=== PATIENT | female | born 1980 | race Caucasian/White ===

== ENCOUNTER 2023-04-06 15:13 | Emergency (ER) | payer OTHER, SELFPAY ==
--- NOTE | ~2023-04-06 | XR_ITS ---
XR toe 5th LT min 2V DATE: 04/06/2023 15:30 INDICATION: Stubbed fifth toe today TECHNIQUE: 3 views COMPARISON: None FINDINGS: There is a linear oblique fracture through the shaft of the proximal phalanx with approxima tely one cortical width lateral displacement and mild to moderate apex medial angulation. No other fracture or any dislocation is noted. IMPRESSION: Fracture of shaft of proximal phalanx of fifth toe Reviewed, dictated and finalized at location L.
--- NOTE | 2023-04-06 16:02 | ED.LOWEXIN ---
HPI - Extremity Injury (Lower) General Chief Complaint: Extremity Injury, Lower Stated Complaint: left fifth toe injury Time Seen by Provider: 04/06/23 15:49 History of Present Illness HPI Narrative: She kicked a box earlier and then had bad pain in her left fifth toe and fell like it was pointing in the wrong direction. She has broken her toe in the past but this was 20 years ago Review of Systems Review of Systems: M/S: Left little toe pain SKIN: No rash. NEURO: [No focal numbness or weakness] PSYCH: [No depression] Exam Narrative: EXAMINATION OF ORGAN SYSTEMS/BODY AREAS: Constitutional: Vital signs per nursing GENERAL:[No acute distress, non-toxic appearing.] HEAD: Normal with no signs of head trauma. EYES: EOMI, conjunctiva normal ENT: Hearing grossly intact LUNGS: Nonlabored breathing. HEART: [Regular rate and rhythm] EXT: Obvious deformity to left little toe, good capillary refill SKIN: [No rashes or lesions.] NEURO: [Alert and oriented x 3. No gross focal sensory or strength deficits.] PSYCH: Normal affect Course Vital Signs Vital signs: Vital Signs Pulse Rate 70 04/06/23 16:35 Respiratory Rate 14 04/06/23 16:35 Blood Pressure 128/76 04/06/23 16:35 Pulse Oximetry 100 04/06/23 16:35 Pulse Rate 70 04/06/23 16:35 Respiratory Rate 14 04/06/23 16:35 Blood Pressure 128/76 04/06/23 16:35 Pulse Oximetry 100 04/06/23 16:35 MDM - Extremity Injury (Lower) MDM Narrative Medical decision making narrative: 42-year-old female presenting with injury to her left little toe, vital signs stable, on exam she has obvious deformity to the left lower toe, neurovascularly intact with good cap refill and sensation, x-ray on my own interpretation does show proximal phalanx fracture mildly displaced with angulation, her toe was everton taped by myself and hard shoe provided, she is given podiatry follow-up Discharge Plan Discharge Clinical Impression: Closed fracture of fifth toe of left foot Patient Disposition: Home, Self-Care Condition: Stable Instructions: Antibiotic Form, Toe Fracture (ED) Additional Instructions: Please keep your toe everton-taped and use the hard shoe and follow up with the foot doctor, and return for any further issues. Follow-up/Referrals: Noel Zhou JR, MD [Physician] - 2 Days PHYSICIAN NOT ON STAFF,NONSTAFF [Primary Care Provider] -
[2023-04-06 16:35] VITALS: BP 128/76; PULSE 70; RESP 14; O2SAT 100
== END 2023-04-06 16:36 | disposition home or self-care (01) ==
LOC: ANHED 16:22
PROVIDERS: Emergency Provider Emergency Medicine
DX: S92.512A Displaced fracture of proximal phalanx of left lesser toe(s), initial encounter for closed fracture (principal); W22.8XXA Striking against or struck by other objects, initial encounter
CPT/HCPCS: 73660; 99284